=== PATIENT | female | born 1950 | race Caucasian/White ===

== ENCOUNTER → 2023-06-05 07:34 | Outpatient (REF) | payer MEDICARE, OTHER, SELFPAY | LOC: WDC 07:34 | PROVIDERS: ATTENDING PHYSICIAN Physician Assistant Medical | DX: M81.0 Age-related osteoporosis without current pathological fracture (principal); Z12.31 Encounter for screening mammogram for malignant neoplasm of breast | CPT/HCPCS: 77063; 77067; 77080 ==

== ENCOUNTER → 2023-07-03 06:42 | Day surgery (SDC) | payer MEDICARE, OTHER, SELFPAY | LOC: GI 06:42 | PROVIDERS: ATTENDING PHYSICIAN Internal Medicine Gastroenterology; FAMILY PHYSICIAN Internal Medicine | DX: Z12.11 Encounter for screening for malignant neoplasm of colon (principal); K64.8 Other hemorrhoids | CPT/HCPCS: G0121 ==

== ENCOUNTER 2024-05-09 06:46 | Emergency (ER) | payer MEDICARE, OTHER, SELFPAY ==
[2024-05-09] VITALS (33 sets, daily range): BP systolic 82–156; BP diastolic 38–94; BMI 24.2
--- NOTE | 2024-05-09 07:26 | ED.GENMED ---
History of Present Illness
<SIMONE Lee - Last Filed: 05/09/24 10:16>
General
Chief Complaint: Fall
Source: patient
Exam Limitations: none
Time Seen by Provider: 05/09/24 07:07
Nursing documentation reviewed up to this point in time: agreed with
History of Present Illness
History of Present Illness:
73 yr old female presents to the ED for evaluation of left wrist pain/trauma after fall. Pt was walking a dog in the snow and slipped and fell. Pt did not hit head. Denies any headache , neck pain . pt c/o of left wrist pain and deformity.
Patient is right-hand dominant.
Review of Systems
<SIMONE Lee - Last Filed: 05/09/24 10:16>
Review of Systems
Allergies reviewed?: Yes
All Other Systems: ROS reviewed and negative except as documented in HPI and ROS
Constitutional: Reports no symptoms
Musculoskeletal: Reports other (left wrist pain)
Skin: Reports no symptoms
Neurological: Reports no symptoms; Denies headache
Psychiatric: Reports no symptoms
Phy Exam
<SIMONE Lee - Last Filed: 05/09/24 10:16>
General Physical Exam
General Presentation: no apparent distress
General age: appears stated age
General Skin: warm and dry
General Habitus: normal
General Mental: alert
General Hydration: appears well hydrated
Neurological Exam
Neurological Exam: alert and oriented x3
Musculoskeletal Exam
Musculoskeletal Exam: other (lue with strong pulses + deformity to left wrist tenderness throughout + distal sensation normal cap refill no tenderness to proximal forearm or elbow; no obvious head injury exam very cervical spine tenderness)
Skin Exam
Skin Exam: normal color and warm/dry
Psychiatric Exam
Psychiatric Exam: normal mood/affect
Course
<SIMONE Lee - Last Filed: 05/09/24 10:16>
Orders/Labs/Results
Orders:
Orders
05/09/24 07:23
Morphine Sulfate 2 mg IV NOW STA
Wrist, Left 3 Views CR [CR Wrist - Left Min 3 Views] Urgent
Comment:
Reason For Exam: trauma
05/09/24 08:14
Propofol [Diprivan] 20 ml .ROUTE .STK-MED
05/09/24 08:30
Wrist, Left 2 Views CR [CR Wrist - Left Min 2 Views] Urgent
Comment:
Reason For Exam: post reduction
05/09/24 08:34
Propofol [Diprivan] 20 ml .ROUTE .STK-MED
05/09/24 08:41
Wrist, Left 2 Views CR [CR Wrist - Left Min 2 Views] Urgent
Comment:
Reason For Exam: post reduction
05/09/24 08:57
CR Wrist - Left Min 2 Views Urgent
Comment:
Reason For Exam: post reduction
05/09/24 09:18
Acetaminophen [Tylenol] 650 mg PO NOW STA
Ibuprofen [Motrin] 400 mg PO NOW STA
Vital Signs
Initial and Last Documented VS:
Initial Vital Signs
Temp Pulse Resp BP Pulse Ox
97.8 F 57 18 82/43 98
05/09/24 06:48 05/09/24 06:48 05/09/24 06:48 05/09/24 06:48 05/09/24 06:48
Last Documented Vital Signs
Temp Pulse Resp BP Pulse Ox
97.8 F 78 14 144/73 97
05/09/24 06:48 05/09/24 08:20 05/09/24 08:20 05/09/24 08:20 05/09/24 08:20
Broadcast Technician consulted with Physician
Broadcast Technician consulted with physician?: Yes (Germaine )
<Rod Herron MD - Last Filed: 05/09/24 09:05>
Orders/Labs/Results
Orders:
Orders
05/09/24 07:23
Morphine Sulfate 2 mg IV NOW STA
Wrist, Left 3 Views CR [CR Wrist - Left Min 3 Views] Urgent
Comment:
Reason For Exam: trauma
05/09/24 08:14
Propofol [Diprivan] 20 ml .ROUTE .STK-MED
05/09/24 08:30
Wrist, Left 2 Views CR [CR Wrist - Left Min 2 Views] Urgent
Comment:
Reason For Exam: post reduction
05/09/24 08:34
Propofol [Diprivan] 20 ml .ROUTE .STK-MED
05/09/24 08:41
Wrist, Left 2 Views CR [CR Wrist - Left Min 2 Views] Urgent
Comment:
Reason For Exam: post reduction
05/09/24 08:57
CR Wrist - Left Min 2 Views Urgent
Comment:
Reason For Exam: post reduction
05/09/24 09:18
Acetaminophen [Tylenol] 650 mg PO NOW STA
Ibuprofen [Motrin] 400 mg PO NOW STA
Vital Signs
Initial and Last Documented VS:
Initial Vital Signs
Temp Pulse Resp BP Pulse Ox
97.8 F 57 18 82/43 98
05/09/24 06:48 05/09/24 06:48 05/09/24 06:48 05/09/24 06:48 05/09/24 06:48
Last Documented Vital Signs
Temp Pulse Resp BP Pulse Ox
97.8 F 78 14 144/73 97
05/09/24 06:48 05/09/24 08:20 05/09/24 08:20 05/09/24 08:20 05/09/24 08:20
Procedures
<Rod Herron MD - Last Filed: 05/09/24 09:05>
Moderate Sedation
ASA Risk Score: Class II
Chart and allergies reviewed: Yes
Consent for anesthesia obtained: Yes
Time out completed (validating right patient & procedure): Yes
Moderate Sedation Start Time(when first medication is given): 08:24
History of difficult intubation: No
Airway free of obstruction: Yes
Patient has a gag reflex: Yes
Patient is able to open mouth: Yes
Patient has no dentures: Yes
Patient has no loose teeth: Yes
Medication administered by Provider during Moderate Sedation: IV Propofol (mg)
Total dose administered: 160
Time drug administered: :24
Moderate Sedation Procedure End Time: :
Splinting/Sling Placement
Left Wrist:
Procedure completed by: Rod Herron MD; SIMONE Simmons
Pre-splint extermity exam: neurovascular intact
Type of splint: sugar-tong
Splint material: fiberglass
Splint checked by provider?: Yes
Type of sling: sling fitted
Normal distal neurovascular exam?: Yes
Joint/Fracture Reduction
Left Wrist:
Indication for procedure:: wrist fracture
Procedure completed by: Rod Herron MD; SIMONE Simmons
Consent form signed: Yes
Anesthesia/sedation: Moderate sedation
Injury was: closed
Further treatement: needs further treatment (ortho referral)
Post reduction exam: stable
Capillary Refill: normal
Normal distal neurovascular exam?: Yes
<SIMONE Lee - Last Filed: 05/09/24 10:16>
MDM/Problems Addressed
Differential Diagnosis Includes:
Limited fracture dislocation,sprain
MDM/Problems Addressed:
Patient is a 73-year-old female with mechanical slip and fall with obvious fracture to distal radius of left wrist. Patient was moderately sedated several attempts of reduction were attempted. + strong pulses. d/c w/ ortho will need outpt FU.
<SIMONE Lee - Last Filed: 05/09/24 10:16>
*Critical Care Note
Total Time (30-74mins, 75-104mins- exclusive of procedures): Not Applicable
ED Attending Note
<SIMONE Lee - Last Filed: 05/09/24 10:16>
-
Portions of this chart may have been created with voice recognition software.� Occasional wrong word or��sound alike� substitutions may have occurred due to the inherent limitations of voice recognition software.
<Rod Herron MD - Last Filed: 05/09/24 09:05>
ED Attending Note
Patient seen and examined by attending physician: Yes
ED Attending Note:
I have seen and evaluated the patient with a [id number] encounter. I have spoken to the advance practicer provider and involved in the medical history, the physical exam, medical decision making.
Evaluation and management service: agree unless noted differently below.
Results interpretation: agree unless noted differently below.
Focused HPI: 73-year-old female presents after a mechanical slip and fall on ice with fall onto outstretched left wrist. Injured her left wrist but denies any other injuries including head strike, neck pain or back pain.
Physical exam: Awake alert no distress. No signs of head trauma. Obvious left wrist deformity but no lacerations or abrasions. Strong radial pulse. Distal neuro intact motor and sensory radial, median, ulnar nerve distribution left upper
extremity.
Medical Decision Makin-year-old female presents after a fall onto outstretched left wrist after slip on ice. X-ray shows Colles' fracture. Reduced under moderate sedation and splinted. Referred to Ortho for outpatient follow-up.
Discharge Plan
Departure
Patient Disposition: Home (Routine Discharge)
Date of Disposition: 05/09/24
Time of Disposition: 10:14
Patient with high blood pressure during this ER visit?: No
Condition: Fair
Covid-19: Not Applicable
Discharge Problem:
Distal radius fracture, left
Instructions: Splint Care ED, BLOOD PRESSURE, Wrist Fracture
Referrals:
Kurtis Amanda MD [Active] -
Jorge Jolley MD [Family Provider] -
Escobar Saavedra MD [Active] -
Activity Restrictions/Additional Instructions:
As discussed wear splint until seen and evaluated by orthopedics. Do not wet splint. Keep dry. Keep elevated as much as possible. You may ice over affected area for the next 24 hours 20 minutes at a time several times a day. Call Saturday
morning for appointment as soon as possible.
Return if any worsening of symptoms of increased pain of cold, numb, blue fingers.
Interventions
Interventions:
*Risk Screen - Suicide Last Done: 05/09/24 07:29
*General Assessment Last Done: 05/09/24 07:29
*Neglect/Abuse Screening Last Done: 05/09/24 07:29
*ED COVID-19 Vaccine History Last Done: 05/09/24 07:29
ED-Musculoskeletal Assessment Last Done: 05/09/24 09:07
ED- Neurological Assessment Last Done: 05/09/24 08:21
ED-Skin Assessment Last Done: 05/09/24 09:07
Discharge Date and Time
Print Language: POLISH
[2024-05-09] MEDS: MORPHINE SULFATE 2 MG IV (07:34)
[2024-05-09] MEDS: TYLENOL 650 MG PO (09:31)
[2024-05-09] MEDS: MOTRIN 400 MG PO (09:32)
== END 2024-05-09 11:00 | disposition home or self-care (01) ==
LOC: EMR 06:46
PROVIDERS: EMERGENCY PHYSICIAN Emergency Medicine; FAMILY PHYSICIAN Internal Medicine
DX: S52.532A Colles' fracture of left radius, initial encounter for closed fracture (principal); W00.0XXA Fall on same level due to ice and snow, initial encounter; Y93.K1 Activity, walking an animal; Z88.2 Allergy status to sulfonamides
CPT/HCPCS: 25605; 99285; 99152; 96374; 73100; 73110

== ENCOUNTER → 2024-06-17 08:15 | Outpatient (REF) | payer MEDICARE, OTHER, SELFPAY | LOC: WDC 08:15 | PROVIDERS: ATTENDING PHYSICIAN Internal Medicine | DX: Z12.31 Encounter for screening mammogram for malignant neoplasm of breast (principal) | CPT/HCPCS: 77063; 77067 ==

== ENCOUNTER → 2025-03-19 06:29 | Outpatient (REF) | payer MEDICARE, OTHER, SELFPAY ==
[2025-03-19 08:50] LABS: HDL Cholesterol 83 mg/dl; LDL Cholesterol, Calculated 142 mg/dl; Very Low Density Lipoprotein 14 mg/dl (0-30)
== END ==
LOC: REG 06:29
PROVIDERS: ATTENDING PHYSICIAN Internal Medicine
DX: E78.49 Other hyperlipidemia (principal)
CPT/HCPCS: 36415; 80061